=== PATIENT | female | born 1985 | race American Indian/Alaskan Native ===

== ENCOUNTER 2018-11-16 13:39 | Inpatient (IN) | payer OTHER ==
[2018-11-16 14:42] LABS: Bacteria,Urine 1+ /HPF (Negative); Bilirubin,Urine NEG (Negative); Blood,Urine MOD (Negative); Color,Urine Yellow (Yellow); Mucus,Urine 2+ /HPF; Urobilinogen,Urine < 2.0 mg/dL (<2.0)
[2018-11-16] MEDS ORDERED: LACTATED RINGERS 500 ML IV ONE (14:45)
--- NOTE | 2018-11-16 17:22 | Ultrasound Report ---
Limited OB ultrasound INDICATION: well being FINDINGS: Limited study is performed There is a single uterine with cephalic presentation. heart rate is 138 bpm. Amniotic fluid index is 9.8 cm which is within the normal range.. Signer Name: Chandan Cast MD Signed: 11/16/2018 5:18 PM Workstation Name: [id number]
[2018-11-16] MEDS ORDERED: XYLOCAINE 2% INFILTRATI ONE (18:42)
[2018-11-16] MEDS ORDERED: BRETHINE IVP PRN (18:42)
[2018-11-16] MEDS ORDERED: SUBLIMAZE IV PRN (18:42)
[2018-11-16] MEDS ORDERED: MINERAL OIL PO PRN (18:42)
[2018-11-16] MEDS ORDERED: STADOL IV PRN (18:42)
[2018-11-16] MEDS ORDERED: BRETHINE SUB-Q PRN (18:42)
[2018-11-16] MEDS ORDERED: ZOFRAN IV PRN (18:42)
[2018-11-16] MEDS ORDERED: PITOCin/NS 20 UNIT/1000ML DRIP 20 UNITS/1,000 ML BAG IV SCH (19:00)
--- NOTE | 2018-11-16 19:01 | History and Physical Report ---
History of Present Illness Date of examination: 11/16/18 Date of admission: 11/16/18 Chief complaint: SROM, contractions History of present illness: Menstrual History Regularity: regular Menses every: 26 days Duration: 4 LMP: 01/17/2018 LMP reliability: unknown LMP character: normal test type: urine test Date: 02/18/2018 BC at conception: none Planned ? yes EDC Calculations LMP: 10/24/2018 EDC Confirmation: 11/20/2018 Gestational Age: 14 3/7 weeks Past History : 4 Term Births: 1 Premature Births: 0 Living Children: 1 Para: 1 Mult. Births: 0 Prev : 0 Prev. attempt? none Aborta: 2 Elect. Ab: 0 Spont. Ab: 2 Ectopics: 0 # 1 Delivery date: 03/20/2004 Weeks Gestation: term labor: no Delivery type: Anesthesia type: epidural Infant Sex: Female weight: 6#14 # 2 Delivery date: 2015 Weeks Gestation: 6 Comments: MAB # 3 Delivery date: 2016 Weeks Gestation: 6 Comments: MAB Past Medical History: Negative Past Medical History Past Surgical History: Negative Past Surgical History Past Medical History Surgery (Non-food and beverage checker): Negative Past Surgical History Abnormal PAP: negative YUNG Exposure: negative Infertility: negative Uterine Anomaly: negative Uterine Surgery (not C/S): negative Other Gynecologic Problems: negative Family Hx: mom-htn mgm-htn Social Hx: prev smoker quit apr 2018 Infection History Hx of STD: none HIV Risk Eval: low risk Hepatitis B Risk Eval: low risk Personal hx. of genital herpes: no Partner hx. of genital herpes: no Rash, Viral, or Febrile illness since last LMP? no Varicella/Chicken Pox Status: Previous Disease TB Risk: no Genetic History Congenital Heart Defect: Mom: no Dad: no Kenneth Disease: Mom: no Dad: no Thalassemia Mom: no Dad: no Neural Tube Defect Mom: no Dad: no Down's Syndrome Mom: no Dad: no Miguel-Sachs Mom: no Dad: no Sickle Cell Disease/Trait Mom: no Dad: no Hemophilia Mom: no Dad: no Muscular Dystrophy Mom: no Dad: no Cystic Fibrosis Mom: no Dad: no [place] Chorea Mom: no Dad: no Mental Retardation Mom: no Dad: no Fragile X Mom: no Dad: no Other Genetic/Chromosomal Disorder Mom: no Dad: no Child w/other defect Mom: no Dad: no Enviromental Exposures Enviromental Exposures Reviewed Xray Exposure: no Medication, drug, or alcohol use since LMP: no Chemical/Other Exposure: no Exposure to Cat Liter: no Hx of Parvovirus (Fifth Disease): no Occupational Exposure to Children: none Active Medications (reviewed today): None Current Allergies (reviewed today): * SULFA (Critical) Past History Past Medical History: other (see HPI) Past Surgical History: other (see HPI) 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) Family/Genetic History: other (see HPI) Social history: other (see HPI) - Obstetrical History : 3 Para: 1 Medications and Allergies Allergies Allergy/AdvReac Type Severity Reaction Status Date / Time Sulfa (Sulfonamide Allergy Itching Verified 11/20/15 17:36 Antibiotics) Home Medications Medication Instructions Recorded Confirmed Last Taken Type Clindamycin [Clindamycin CAP] 450 mg PO QID #60 capsule 11/21/15 Unknown Rx Doxycycline Hyclate [Doxycycline 100 mg PO Q12HR #14 tab 11/21/15 Unknown Rx Hyclate TAB] HYDROcodone/APAP 7.5-325 [[place] 1 each PO Q6HR PRN #15 tablet 11/21/15 Unknown Rx 7.5/325] Review of Systems All systems: negative Genitourinary: leakage of fluid ("a couple times" Not continued), contractions (occasional, tolerable) - Vital Signs Vital signs: Vital Signs Temp Pulse Resp BP 98.5 F 100 H 20 113/72 11/16/18 14:01 11/16/18 14:01 11/16/18 14:01 11/16/18 14:01 Temp Pulse Resp BP Pulse Ox 98.5 F 100 H 20 113/72 11/16/18 14:01 11/16/18 14:02 11/16/18 14:01 11/16/18 14:02 - Physical Exam Cardiovascular: Regular rate, Normal S1, Normal S2 Lungs: Positive: Clear to auscultation, Normal air movement Abdomen: Positive: normal appearance, soft, normal bowel sounds. Negative: distention, tenderness Genitourinary (Female): Positive: normal external genitalia, normal perenium Vulva: both: normal Vagina: Positive: normal moisture. Negative: discharge Cervix: Negative: lesion, discharge Uterus: Positive: normal size, normal contour Adnexa: both: normal Anus/Rectum: Positive: normal perianal skin. Negative: rectal mass, hemorrhoids Extremities: Deep Tendon Reflex Grade: Normal +2 - Obstetrical FHR: auscultation normal Uterine Contraction Monitor Mode: External Cervical Dilatation: 4 Cervical Effacement Percentage: 70 station: -2 Uterine Tone Measurement Phase: Contraction Uterine Contraction Intensity: Moderate Results Result Diagrams: 11/17/18 Unknown Abnormal lab results 11/16/18 Range/Units 14:28 Urine WBC (Auto) 8.0 H (0.0-6.0) /HPF U Epithel Cells (Auto) 24.0 H (0-13.0) /HPF All other labs normal. Assessment and Plan term iup presents to triage with c/o LOF, KITTY 9cm, no s/s ROM. SVE on arrival per anodiser 1.5/30/-3, changes to 3/30/-3. Upon my assessment, SVE 4/70/-2, IBOW, vtx. Cat 1 tracing, vssaf. Admission orders placed in EMR. GBS negative. Pt plans for epidural for pain management .Dr. Pina aware of admission. Anticipate .
--- NOTE | 2018-11-16 22:39 | Event Note ---
Date: 11/16/18 SVE 4.5/70/-2, no significant change since admission. Contractions remain regular, palpating moderate, q2-5 minuted. DWP options for proceeding- SROM, pitocin, expt mgmt, pt elects exlt mgmt until FOC arrives to hospital from work. [facility] cat 1, VSSAF. Will continue to monitor at this time.
--- NOTE | 2018-11-17 00:41 | Event Note ---
Date: 11/17/18 Called to room by patient who requests AROM, DWP risks vs benefits pt agrees to proceed. SVE is 5/80/-2, vertex, tight BBOW- SROM upon digital examination, clear fluid noted. Patient voices desire for epidural at this time. Will plan to start pitocin after epidural placement if no cervical change noted. FHTs remain category 1. vssaf.
[2018-11-17] MEDS: LACTATED RINGERS 1,000 ML IV SCH ×2 (00:46→02:14)
[2018-11-17 01:34] LABS: Hematocrit TNR % (30.3-42.9); Hemoglobin TNR gm/dl (10.1-14.3); Mean Corpuscular HGB Conc TNR % (30-34); Mean Corpuscular Volume TNR fl (79-97); Platelet Count TNR K/mm3 (140-440); Red Blood Count TNR M/mm3 (3.65-5.03); Red Cell Distribution Width TNR % (13.2-15.2)
[2018-11-17 01:35] LABS: Mean Platelet Volume TNR fl (6-12)
[2018-11-17] MEDS ORDERED: NARCAN 2 MG/2 ML IV PRN (02:05)
--- NOTE | 2018-11-17 02:05 | Anesthesia Consultation ---
Anesthesia Consult and Med Hx Date of service: 11/17/18 - Airway Anesthetic Teeth Evaluation: Good ROM Head & Neck: Adequate Mental/Hyoid Distance: Adequate Mallampati Class: Class II Intubation Access Assessment: Probably Good - Pre-Operative Health Status ASA Pre-Surgery Classification: ASA2 Proposed Anesthetic Plan: Epidural, Spinal - Pulmonary Hx Asthma: No COPD: No Hx Pneumonia: No - Cardiovascular System Hx Hypertension: No - Central Nervous System Hx Seizures: No Hx Psychiatric Problems: No - Endocrine Hx Renal Disease: No Hx End Stage Renal Disease: No Hx Hypothyroidism: No Hx Hyperthyroidism: No - Hematic Hx Anemia: No Hx Sickle Cell Disease: No - Other Systems Hx Alcohol Use: No
[2018-11-17] MEDS ORDERED: PITOCin/NS 30 UNIT/500ML 30,000 MILLIUNITS/500 ML BAG IV ONE (02:47)
[2018-11-17] MEDS ORDERED: fentaNYL-BUPIV 2 MCG/ML-0.125% 200 MCG/100 ML BAG EPIDURAL SCH (03:00)
[2018-11-17] MEDS ORDERED: PITOCin/NS 30 UNIT/500ML 30 UNITS/500 ML BAG IV SCH (04:00)
--- NOTE | 2018-11-17 07:46 | Procedure Note ---
OB Delivery Note - Delivery Date of Delivery: 11/17/18 ( female) Four Slide Machine Setter: LENCHO ORDOÑEZ Estimated blood loss: 300cc - Vaginal Delivery presentation: vertex Delivery position: OP (direct OP, restituted ROT) Intrapartum events: none Delivery induction: none Delivery augmentation: rupture of membranes, pitocin Delivery monitor: external FHT, external uterine Route of delivery: Delivery placenta: spontaneous Delivery cord: 3 umbilical vessels Episiotomy: none Delivery laceration: none Anesthesia: epidural Delivery comments: female infant over intact perineum, infant del direct OP and restituted ROT. placed on mother's abd for skin to skin. 3 vessel cord clamped and cut. Placenta del intact and complete, no lacerations to repair. Pit to IVF. mother and remain LDR stable. - A at 1 minute: 8 at 5 minutes: 9 Gender: Female (6#2)
[2018-11-17] MEDS ORDERED: PITOCin/NS 20 UNIT/1000ML DRIP 20 UNITS/1,000 ML BAG IV SCH (10:46)
[2018-11-17] MEDS ORDERED: MILK OF MAGNESIA PO PRN (10:46)
[2018-11-17] MEDS ORDERED: BENADRYL PO PRN (10:46)
[2018-11-17] MEDS ORDERED: DULCOLAX PR PRN (10:46)
[2018-11-17] MEDS ORDERED: SODIUM CHLORIDE FLUSH SYRINGE 10 ML IV SCH (10:46)
[2018-11-17] MEDS ORDERED: DERMOPLAST TP PRN (10:46)
[2018-11-17] MEDS ORDERED: TUCKS PAD TP PRN (10:46)
[2018-11-17] MEDS ORDERED: PHENERGAN PO PRN (10:46)
[2018-11-17] MEDS ORDERED: LANSINOH TP PRN (10:46)
[2018-11-17] MEDS ORDERED: TYLENOL PO PRN (10:46)
[2018-11-17] MEDS ORDERED: PRENATAL VITAMIN PO SCH (11:46)
[2018-11-17] MEDS: IBUPROFEN PO SCH (17:54)
[2018-11-17 20:28] LABS: Hematocrit 33.1 % (30.3-42.9); Hemoglobin 11.6 gm/dl (10.1-14.3)
[2018-11-18] MEDS: IBUPROFEN PO SCH ×2 (00:39→06:10)
[2018-11-18] MEDS ORDERED: M-M-R II VACCINE SUB-Q ONE (07:47)
--- NOTE | 2018-11-18 08:46 | Discharge Summary ---
Providers - Providers Date of Admission: 11/16/18 19:45 Date of discharge: 11/18/18 (patient desires discharge today) Attending physician: HORACIO BURGER Primary care physician: HORACIO BURGER Hospitalization Reason for admission: labor Condition: Good Pertinent studies: post delivery h&H 11.6/33.1 Procedures: Hospital course: uncomplicated and course Disposition: DC-01 TO HOME OR SELFCARE Core Measure Documentation - Palliative Care Palliative Care/ Comfort Measures: Not Applicable - Core Measures Any of the following diagnoses?: none Exam - Constitutional Vitals: Temp Pulse Resp BP Pulse Ox 97.9 F 83 16 90/58 100 11/18/18 01:51 11/18/18 01:51 11/18/18 06:10 11/18/18 01:51 11/18/18 01:51 General appearance: Present: no acute distress, well-nourished - EENT Eyes: Present: PERRL ENT: hearing intact, clear oral mucosa - Neck Neck: Present: supple, normal ROM - Respiratory Respiratory effort: normal Respiratory: bilateral: CTA - Cardiovascular Heart Sounds: Present: S1 & S2. Absent: rub, click - Extremities Extremities: pulses symmetrical, No edema Peripheral Pulses: within normal limits - Abdominal General gastrointestinal: Present: soft, non-tender, non-distended, normal bowel sounds Female genitourinary: Present: normal - Integumentary Integumentary: Present: clear, warm, dry - Musculoskeletal Musculoskeletal: gait normal, strength equal bilaterally - Psychiatric Psychiatric: appropriate mood/affect, intact judgment & insight - Neurologic Neurologic: CNII-XII intact, moves all extremities - Additional findings Additional findings: Fundus firm, ML, U/2. Vaginal bleeding is scant, patient denies any large clots or heavy bleeding. Patient reports pain is well controlled with ibuprofen. She denies any complaints or concerns at this time. Pt reports is doing well, she is bottle feeding only, denies any breast complaints. Reviewed post delivery H&H with pt, she denies any dizziness or feeling faint with ambulation or position changes. VSSAF. Pt desires discharge today, will f/u in office for PP appt in 4 weeks. Plan Activity: no restrictions Diet: regular Follow up with: HORACIO BURGER MD [Primary Care Provider] - 12/16/18 (Congratulations! P lópez call [phone] to schedule your post appointment in 4 weeks. Please call with any questions or concerns. )
[2018-11-18 13:25] VITALS: BP 115/71
== END 2018-11-18 15:00 | disposition home or self-care (01) | DRG 775 ==
LOC: TRG 13:39 → LD 19:45 → OB 11-17 10:45
PROVIDERS: ADMIT Obstetrics & Gynecology; ATTEND Obstetrics & Gynecology
PROC: 10E0XZZ Delivery of Products of Conception, External Approach (ICD-10-PCS; principal; 2018-11-17)
PROC: 3E0R3BZ Introduction of Anesthetic Agent into Spinal Canal, Percutaneous Approach (ICD-10-PCS; 2018-11-17)
PROC: 00HU33Z Insertion of Infusion Device into Spinal Canal, Percutaneous Approach (ICD-10-PCS; 2018-11-17)
DX: O64.0XX0 Obstructed labor due to incomplete rotation of fetal head, not applicable or unspecified (principal); Z37.0 Single live birth; Z88.2 Allergy status to sulfonamides; Z3A.39 39 weeks gestation of pregnancy
CPT/HCPCS: 36415; 76815; 81001; 85014; 85018; 85027; 85049; 86592; 86850; 86900; 86901; G0378; J2590; J7120

== ENCOUNTER 2021-01-06 05:54 | Inpatient (IN) | payer OTHER ==
[2021-01-06] MEDS ORDERED: CARBOPROST TROMETHAMINE 250 MCG/1 ML INJ IM PRN (07:54)
[2021-01-06] MEDS ORDERED: ePHEDrine SULFATE 50 MG/1 ML INJ IV PRN ×2 (07:54→16:50)
[2021-01-06] MEDS ORDERED: TERBUTALINE 1 MG/1 ML INJ SUB-Q PRN (07:54)
[2021-01-06] MEDS ORDERED: LOPERAMIDE 2 MG CAP PO PRN (07:54)
[2021-01-06] MEDS ORDERED: METHYLERGONOVINE MALEATE 0.2 MG/ML VIAL IM PRN (07:54)
[2021-01-06] MEDS ORDERED: LIDOCAINE (2%) 20 MG/1 ML VIAL 20 ML MDV INFILTRATI ONE (07:54)
[2021-01-06] MEDS ORDERED: ACETAMINOPHEN 325 MG TAB PO PRN ×2 (07:54→23:52)
[2021-01-06] MEDS ORDERED: MINERAL OIL 30 ML ORAL LIQD PO PRN (07:54)
[2021-01-06] MEDS ORDERED: miSOPROStol 200 MCG TAB PR PRN (07:54)
[2021-01-06] MEDS ORDERED: BUTORPHANOL 2 MG/1 ML INJ IV PRN (07:54)
[2021-01-06] MEDS ORDERED: ONDANSETRON 4 MG/2 ML INJ IV PRN ×3 (07:54→23:52)
[2021-01-06] MEDS ORDERED: OXYTOCIN 10 UNIT/1 ML INJ IM PRN (07:54)
[2021-01-06] MEDS ORDERED: OXYTOCIN DRIP 30 UNITS/500 ML BAG IV SCH ×2 (08:00)
--- NOTE | 2021-01-06 08:08 | History and Physical Report ---
History of Present Illness Date of examination: 01/06/21 Date of admission: 01/06/2021 Chief complaint: "water is broken but I don't feel any contractions" History of present illness: EDC Confirmation: 01/08/2021 Gestational Age: 39 5/7 weeks Past History : 5 Term Births: 2 Premature Births: 0 Living Children: 2 Para: 2 Mult. Births: 0 Prev : 0 Prev. attempt? none Aborta: 2 Elect. Ab: 0 Spont. Ab: 2 Ectopics: 0 # 1 Delivery date: 03/20/2004 Weeks Gestation: term labor: no Delivery type: Hours of labor: ? Anesthesia type: epidural Delivery location: [facility] Infant Sex: Female weight: 6#14 Comments: No complications # 2 Delivery date: 2014 Weeks Gestation: 6 Delivery type: SAB Comments: MAB, No complications, no meds or D&C # 3 Delivery date: 2015 Weeks Gestation: 6 Delivery type: SAB Comments: MAB, no complications, no meds or D&C # 4 Delivery date: 11/17/2018 Weeks Gestation: 39 labor: no Delivery type: Vaginal Hours of labor: 10 hours Anesthesia type: epidural Delivery location: [facility] Infant Sex: female weight: 6.13 Comments: No complications Risk Factors: Smoked Tobacco Use: Current every day smoker Cigarettes: Yes -- 1pk a week pack(s) per day, Year started: 2003 Years smoked: 17 years Smokeless Tobacco Use: Never Counseled to quit/cut down: yes Tobacco Use Comments: Pt will try and quit without medication. 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 % Sun Exposure: rarely Dietary Counseling: pn yes Past Medical History: Reviewed history from 05/25/2018 and no changes required: Negative Past Medical History Past Surgical History: Reviewed history from 05/25/2018 and no changes required: negative Past Medical History Anesthesia Complications: negative Anemia: negative Autoimmune Disorder: negative Bleeding Disorder: negative Blood Transfusions: negative Breast Disease: negative Diabetes: negative Heart Disease: negative Hypertension: negative Hepatitis/Liver Disease: negative Kidney Disease/UTI: negative Neurologic/Epilepsy/Migraines: negative Phlebitis/Varicosities: negative Psychiatric: negative Pulmonary Disease/Asthma: negative Thyroid Disease: negative Hospitalizations: negative Surgery (Non-manager retention): negative Abnormal PAP: negative YUNG Exposure: negative Infertility: negative Uterine Anomaly: negative Uterine Surgery (not C/S): negative Other Gynecologic Problems: negative Social Hx: prev smoker quit apr 2018 Infection History Hx of STD: none HIV Risk Eval: no Hepatitis B Risk Eval: low risk Personal hx. of genital herpes: no Partner hx. of genital herpes: no Rash, Viral, or Febrile illness since last LMP? no Varicella/Chicken Pox Status: Previous Disease TB Risk: no Genetic History Congenital Heart Defect: Mom: no Dad: no Kenneth Disease: Mom: no Dad: no Thalassemia Mom: no Dad: no Neural Tube Defect Mom: no Dad: no Down's Syndrome Mom: no Dad: no Miguel-Sachs Mom: no Dad: no Sickle Cell Disease/Trait Mom: no Dad: no Hemophilia Mom: no Dad: no Muscular Dystrophy Mom: no Dad: no Cystic Fibrosis Mom: no Dad: no [place] Chorea Mom: no Dad: no Mental Retardation Mom: no Dad: no Fragile X Mom: no Dad: no Other Genetic/Chromosomal Disorder Mom: no Dad: no Child w/other defect Mom: no Dad: no Enviromental Exposures Xray Exposure: no Medication, drug, or alcohol use since LMP: no Chemical/Other Exposure: no Exposure to Cat Liter: no Hx of Parvovirus (Fifth Disease): no Occupational Exposure to Children: none Active Medications: None Current Allergies: * SULFA (Critical) Past History Past Medical History: other (see HPI) Past Surgical History: other (see HPI) 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) Family/Genetic History: other (see HPI) Social history: smoking (former), other (see HPI) - Obstetrical History Expected Date of Delivery: 01/08/21 Actual Gestation: 39 Week(s) 5 Day(s) : 5 Para: 2 Hx # Term Pregnancies: 2 Number of Pregnancies: 0 Spontaneous Abortions: 2 Induced : 0 Number of Living Children: 2 Medications and Allergies Allergies Allergy/AdvReac Type Severity Reaction Status Date / Time Sulfa (Sulfonamide Allergy Itching Verified 11/20/15 17:36 Antibiotics) Home Medications Medication Instructions Recorded Confirmed Last Taken Type Clindamycin [Clindamycin CAP] 450 mg PO QID #60 capsule 11/21/15 11/17/18 Unknown Rx Doxycycline Hyclate [Doxycycline 100 mg PO Q12HR #14 tab 11/21/15 11/17/18 Unknown Rx Hyclate TAB] HYDROcodone/APAP 7.5-325 [[place] 1 each PO Q6HR PRN #15 tablet 11/21/15 11/17/18 Unknown Rx 7.5/325] Review of Systems All systems: negative Genitourinary: leakage of fluid, no vaginal bleeding, no contractions - Vital Signs Vital signs: Vital Signs Pulse BP 81 118/69 01/06/21 06:10 01/06/21 06:10 Temp Pulse Resp BP Pulse Ox 98.7 F 79 18 118/69 98 01/06/21 06:11 01/06/21 07:32 01/06/21 06:11 01/06/21 06:11 01/06/21 07:32 - Physical Exam Breasts: Positive: deferred Cardiovascular: Regular rate Lungs: Positive: Normal air movement Abdomen: Positive: normal appearance, soft Genitourinary (Female): Positive: normal external genitalia, normal perenium Vulva: both: normal Vagina: Positive: normal moisture (clear) Uterus: Positive: normal size, normal contour. Negative: tender Anus/Rectum: Positive: normal perianal skin Extremities: Positive: normal - Obstetrical FHR: auscultation normal, category 1 Uterine Contraction Monitor Mode: External Cervical Dilatation: 4 Cervical Effacement Percentage: 80 station: -2 Uterine Contraction Pattern: Regular Uterine Tone Measurement Phase: Resting Results Result Diagrams: 01/06/21 08:00 Abnormal lab results 01/06/21 Range/Units 06:30 Membranes Rupture Positive A (Negative) All other labs normal. Tests: (1) Ct, Ng, Trich vag by MICHELA ([id number]) Order Note: Clinical Information: SRC:VR SRC:UR ! Chlamydia by MICHELA Negative Negative *1 ! Gonococcus by MICHELA Negative Negative *2 ! Trich vag by MICHELA Negative Negative *3 Tests: (2) Strep Gp B MICHELA ([id number]) ! Strep Gp B MICHELA Negative Negative *4 Tests: (1) Profile I ([id number]) Order Note: Clinical Information: SRC:UR HBsAg Screen Negative Negative *1 RPR Non Reactive Non Reactive *2 Rubella Antibodies, IgG 12.40 index Immune >0.99 *3 Non-immune <0.90 Equivocal 0.90 - 0.99 Immune >0.99 ABO Grouping O *4 Rh Factor Positive *5 Please note: Prior records for this patient's ABO / Rh type are not available for additional verification. Antibody Screen Negative Negative *6 WBC 5.7 x10E3/uL 3.4-10.8 *7 RBC [L] 3.29 x10E6/uL 3.77-5.28 *8 Hemoglobin [L] 10.7 g/dL 11.1-15.9 *9 Hematocrit [L] 32.7 % 34.0-46.6 *10 MCV [H] 99 fL 79-97 *11 MCH 32.5 pg 26.6-33.0 *12 MCHC 32.7 g/dL 31.5-35.7 *13 RDW 13.4 % 12.3-15.4 *14 Platelets 265 x10E3/uL 150-379 *15 Neutrophils 72 % Not Estab. *16 Lymphs 22 % Not Estab. *17 Monocytes 5 % Not Estab. *18 Eos 1 % Not Estab. *19 Basos 0 % Not Estab. *20 ! Immature Cells <No Reported Value> *21 Neutrophils (Absolute) 4.1 x10E3/uL 1.4-7.0 *22 Lymphs (Absolute) 1.2 x10E3/uL 0.7-3.1 *23 Monocytes(Absolute) 0.3 x10E3/uL 0.1-0.9 *24 Eos (Absolute) 0.1 x10E3/uL 0.0-0.4 *25 Baso (Absolute) 0.0 x10E3/uL 0.0-0.2 *26 ! Immature Granulocytes 0 % Not Estab. *27 ! Immature Grans (Abs) 0.0 x10E3/uL 0.0-0.1 *28 ! NRBC <No Reported Value> *29 Hematology Comments: <No Reported Value> *30 Tests: (2) AFP Tetra ([id number]) ! Results Report *31 ! Test Results: *Screen Negative* *32 ! Gest. Age on Collection Date 18.4 WEEKS *33 ! Gestat. Age Based On AISLINN *34 11/20/2018 ! Maternal [age]ISLINN 33.6 yr *35 ! Race Black *36 ! Weight 144 lbs *37 ! Insulin Dep Diabetes No *38 ! Multiple Gestation No *39 ! AFP Value 41.1 ng/mL *40 ! AFP MoM 0.81 *41 ! hCG Value 58270 mIU/mL *42 ! hCG MoM 0.81 *43 ! uE3 Value 1.88 ng/mL *44 ! uE3 MoM 1.30 *45 ! TAMEKA Value 121.82 pg/mL *46 ! TAMEKA MoM 0.69 *47 ! [place]BR [place] 1 [place] [address] *48 ! DSR (Second Trimester) 1 IN 8490 *49 ! DSR (By Age) 1 IN 477 *50 ! T18 Risk Not increased *51 ! T18 (By Age) 1:1856 *52 ! Interpretation NL42 *53 Interpretation: Screen Negative This result is screen negative for OSB, Down Syndrome and Trisomy 18. The AFP MoM and patient specific risks calculated are based on the gestational age and the clinical information provided. This test can identify up to 80% of open neural tube defects. Closed neural tube defects and some open defects may not be detected by this test. The combination of maternal age, AFP, hCG, uE3, and TAMEKA identifies 75-80% of Down Syndrome. The combination of maternal age, AFP, hCG and uE3 identifies 60% of Trisomy 18 pregnancies. The [place] [employer] recommends amniocentesis be offered to women age 35 and older. Recalculations are not recommended when gestational dating by LMP and ultrasound are within 10 days. ! Comments: [facility] *54 Angela Sheridan, Ph.D., [facility] Principal Genetics Laborer [employer] References: Available Upon Request. Multiples Of Median Cutoffs Abbreviation Definitions For AFP Elevations IDD- Insulin Dep Diabetes [place] 2.5 Black 2.8 OSBR- Open Spina Bifida IDD 2.0 Twins 4.5 Risk DSR Cutoff 1:270 DSR- Down Syndrome Risk T18 Cutoff 1:100 T18- Trisomy 18 Down Syndrome and Trisomy 18 screening are considered Investigational For further inquiries contact [employer] at [phone]. Tests: (3) Panel [id number] ([id number]) HIV Screen 4th Generation wRfx Non Reactive Non Reactive *55 Tests: (4) HCV Ab w/Rflx to Verification ([id number]) ! HCV Ab 0.1 s/co ratio 0.0-0.9 *56 Tests: (5) Comment: ([id number]) ! Comment: SPRCS *57 Non reactive HCV antibody screen is consistent with no HCV infection, unless recent infection is suspected or other evidence exists to indicate HCV infection. Tests: (6) Urine Culture, Routine ([id number]) Urine Culture, Routine [A] Final report *58 Tests: (7) Result ([id number]) ! Result 1 [A] "Result Below..." *59 RESULT: Enterococcus faecalis 25,000-50,000 colony forming units per mL Note: this isolate is vancomycin-susceptible. This information is provided for epidemiologic purposes only: vancomycin is not among the antibiotics recommended for therapy of urinary tract infections caused by Enterococcus. ! Antimicrobial Susceptibility MIHEAD *60 S = Susceptible; I = Intermediate; R = Resistant P = Positive; N = Negative MICS are expressed in micrograms per mL Antibiotic RSLT#1 RSLT#2 RSLT#3 RSLT#4 Ciprofloxacin S Levofloxacin S Nitrofurantoin S Penicillin S Tetracycline S Vancomycin S Performed At: , [facility] [address] [place] [address] [id number] Ezequiel Lowery MD Phone: [phone] Performed At: , [facility] [address], [place] [id number] Nya Lopez MD Phone: [phone] Assessment and Plan FHT's cat 1 with regular contractions noted. ROM plus +; GBS negative. No complaints verbalized at this time. SVE 4/80/-2 SROM clear fluid VTX presentation. POC discussed with pt and SO. All questions and concerns addressed. Admit to labor and monitor per protocol, augment labor with Pitocin; Orders in EMR. Anticipate - Patient Problems (1) 39 weeks gestation of Current Visit: Yes Status: Acute (2) Rupture of membranes with clear amniotic fluid Current Visit: Yes Status: Acute (3) echogenic intracardiac focus on ultrasound Current Visit: Yes Status: Acute Plan to address problem: FELECIA team notification and attendance requested for delivery
[2021-01-06 08:46] LABS: Hematocrit 34.6 % (30.3-42.9); Hemoglobin 12.4 gm/dl (10.1-14.3); Mean Corpuscular HGB Conc 36 % (30-34); Mean Corpuscular Volume 100 fl (79-97); Platelet Count 249 K/mm3 (140-440); Red Blood Count 3.46 M/mm3 (3.65-5.03); Red Cell Distribution Width 12.5 % (13.2-15.2)
[2021-01-06] MEDS: LACTATED RINGERS 1,000 ML IV SCH ×2 (09:14→16:20)
--- NOTE | 2021-01-06 14:28 | Event Note ---
Date: 01/06/21 Pt sitting in bed with FOB present at bedside. Pt without complaints and verbalizes "contractions have really just started". Pitocin IV @5mL/hr currently infusing. SVE /-2 clear fluid noted; Slow progression discussed with pt and RN at bedside. Risks and benefits of internal monitoring reviewed and pt verbalizes understanding. Pt declines internal monitoring for accurate measurement at this time. Continue augmentation and monitoring per protocol. Anticipate .
[2021-01-06] MEDS ORDERED: NALOXONE 2 MG/2 ML INJ IV PRN (16:50)
[2021-01-06] MEDS ORDERED: NalbUPHINE 10 MG/1 ML INJ IV PRN (16:50)
[2021-01-06] MEDS ORDERED: diphenhydrAMINE 50 MG/ML VIAL IV PRN (16:50)
[2021-01-06] MEDS ORDERED: fentaNYL-BUPIV 2 MCG/ML-0.125% 200 MCG/100 ML BAG EPIDURAL SCH (17:00)
[2021-01-06] MEDS ORDERED: LACTATED RINGERS 250 ML IV SOLN IV ONE (17:00)
--- NOTE | 2021-01-06 17:14 | Anesthesia Consultation ---
Anesthesia Consult and Med Hx Date of service: 01/06/21 - Airway Anesthetic Teeth Evaluation: Good ROM Head & Neck: Adequate Mental/Hyoid Distance: Adequate Mallampati Class: Class II Intubation Access Assessment: Probably Good - Pulmonary Exam CTA: Yes - Cardiac Exam Cardiac Exam: RRR - Pre-Operative Health Status ASA Pre-Surgery Classification: ASA2 Proposed Anesthetic Plan: Epidural - Pulmonary Hx Smoking: No Hx Asthma: No COPD: No Hx Pneumonia: No Hx Sleep Apnea: No - Cardiovascular System Hx Hypertension: No Hx Heart Attack/AMI: No Hx Angina: No - Central Nervous System Hx Seizures: No Hx Psychiatric Problems: No - Gastrointestinal Hx Gastroesophageal Reflux Disease: No - Endocrine Hx Renal Disease: No Hx End Stage Renal Disease: No Hx Liver Disease: No Hx Insulin Dependent Diabetes: No Hx Non-Insulin Dependent Diabetes: No Hx Hypothyroidism: No Hx Hyperthyroidism: No - Hematic Hx Anemia: No Hx Sickle Cell Disease: No - Other Systems Hx Alcohol Use: Yes
--- NOTE | 2021-01-06 17:16 | Progress Note ---
Labor Epidural - Labor Epidural Start Time: 17:00 Stop Time: 17:11 Performed by:: HILARY MCCLURE (Tang PRYOR) Procedure: Patient is requesting epidural for labor and pain. H&P, labs were reviewed. Patient IDed, H&P reviewed, all questions and concerns were answered, and consent was signed. Timeout was performed at bedside. Patient in sitting position. Sterile prep and drape was performed. 3ml of 1% lidocaine skin wheal at L[3]- L [4]. 18-gauge [employer] epidural needle was advanced to loss of resistance with air technique 7cm. Negative CSF negative blood. Epidural catheter advanced to [11] centimeters. [negative] Aspiration [negative] test dose. Sterile dressing applied. Patient tolerated procedure.
--- NOTE | 2021-01-06 19:47 | Event Note ---
Date: 01/06/21 Pt without complaints s/p epidural. Cat1 FHT's and regular contractions noted via strip at this time. SVE ant. lip/100%/+1 station. Pt denies feeling any rectal pressure. RN made aware. Anticipate .
--- NOTE | 2021-01-06 21:26 | Procedure Note ---
OB Delivery Note - Delivery Date of Delivery: 01/06/21 Community Director: MICHAEL PRADO Estimated blood loss: 100cc - Vaginal Delivery presentation: vertex Delivery position: OA Intrapartum events: none Delivery induction: none Delivery augmentation: pitocin Delivery monitor: external FHT, external uterine Route of delivery: Delivery placenta: spontaneous Delivery cord: 3 umbilical vessels Episiotomy: none Delivery laceration: 1st degree Delivery repair: other (hemostatic, repair not needed) Anesthesia: epidural Delivery comments: Viable male infant delivered over intact perineum and placed on mother's abdomen. Infant vigorous and crying spontaneously, [facility]LE[facility] team present for delivery; 3 vessel umbilical cord clamped after cessation of pulsation and cut by FOB. Cord blood collected. Placenta delivered spontaneously and intact. Pitocin infusing IV. 1st degree laceration hemostatic at this time and repair not needed. Fundus firm with small vaginal bleeding, pericare done; Apgars 8,9 Wt 7lbs 4oz. Mother and baby remain LDR stable. Counts correct x2. EBL 100mL - A at 1 minute: 8 at 5 minutes: 9 Gender: Male (7lbs 4oz)
[2021-01-06] MEDS ORDERED: diphenhydrAMINE 25 MG CAP PO PRN (23:52)
[2021-01-06] MEDS ORDERED: MAGNESIUM HYDROXIDE (MOM) ORAL LIQD UDC PO PRN (23:52)
[2021-01-06] MEDS ORDERED: BENZOCAINE/MENTHOL 20/0.5% TOP SPRAY 56 GM TP PRN (23:52)
[2021-01-06] MEDS ORDERED: PROMETHAZINE 25 MG TAB PO PRN (23:52)
[2021-01-06] MEDS ORDERED: WITCH HAZEL/ GLYCERIN PAD TP PRN (23:52)
[2021-01-06] MEDS ORDERED: miSOPROStol 100 MCG TAB PR PRN (23:52)
[2021-01-06] MEDS ORDERED: LANOLIN/ZINC/DIMETHICONE (LANSINOH) 7 GM TP PRN (23:52)
[2021-01-06] MEDS ORDERED: oxyCODONE /ACETAMINOPHEN 5-325MG TAB PO PRN (23:52)
[2021-01-07] MEDS: IBUPROFEN 600 MG TAB PO SCH ×4 (00:55→19:02)
[2021-01-07] MEDS: DOCUSATE SODIUM 100 MG CAP PO SCH ×3 (00:57→23:09)
[2021-01-07] MEDS: FERROUS SULFATE 325 MG TAB PO SCH ×3 (00:57→23:08)
--- NOTE | 2021-01-07 09:45 | Progress Note ---
Assessment and Plan Pt sitting in bed without complaints. Infant swaddled in bassinet at bedside. VSS and H&H stable post delivery. Pt reports ambulating, eating, and voiding well and without difficulty. Reports desires for Mirena placement PP for BC. All questions and concerns addressed. Precautions reviewed. Anticipate stable discharge home tomorrow. - Patient Problems (1) echogenic intracardiac focus on ultrasound Current Visit: Yes Status: Acute (2) (normal spontaneous vaginal delivery) Current Visit: No Status: Acute Plan to address problem: continue pathway Subjective - Subjective Date of service: 01/07/21 Principal diagnosis: PP Day#1; IUP @term delivered; Interval history: EDC Confirmation: 01/08/2021 Gestational Age: 39 5/7 weeks Past History : 5 Term Births: 2 Premature Births: 0 Living Children: 2 Para: 2 Mult. Births: 0 Prev : 0 Prev. attempt? none Aborta: 2 Elect. Ab: 0 Spont. Ab: 2 Ectopics: 0 # 1 Delivery date: 03/20/2004 Weeks Gestation: term labor: no Delivery type: Hours of labor: ? Anesthesia type: epidural Delivery location: [facility] Sex: Female weight: 6#14 Comments: No complications # 2 Delivery date: 2014 Weeks Gestation: 6 Delivery type: SAB Comments: MAB, No complications, no meds or D&C # 3 Delivery date: 2015 Weeks Gestation: 6 Delivery type: SAB Comments: MAB, no complications, no meds or D&C # 4 Delivery date: 11/17/2018 Weeks Gestation: 39 labor: no Delivery type: Vaginal Hours of labor: 10 hours Anesthesia type: epidural Delivery location: [facility] Sex: female weight: 6.13 Comments: No complications Risk Factors: Smoked Tobacco Use: Current every day smoker Cigarettes: Yes -- 1pk a week pack(s) per day, Year started: 2003 Years smoked: 17 years Smokeless Tobacco Use: Never Counseled to quit/cut down: yes Tobacco Use Comments: Pt will try and quit without medication. 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 % Sun Exposure: rarely Dietary Counseling: pn yes Past Medical History: Reviewed history from 05/25/2018 and no changes required: Negative Past Medical History Past Surgical History: Reviewed history from 05/25/2018 and no changes required: negative Past Medical History Anesthesia Complications: negative Anemia: negative Autoimmune Disorder: negative Bleeding Disorder: negative Blood Transfusions: negative Breast Disease: negative Diabetes: negative Heart Disease: negative Hypertension: negative Hepatitis/Liver Disease: negative Kidney Disease/UTI: negative Neurologic/Epilepsy/Migraines: negative Phlebitis/Varicosities: negative Psychiatric: negative Pulmonary Disease/Asthma: negative Thyroid Disease: negative Hospitalizations: negative Surgery (Non-director of career services): negative Abnormal PAP: negative YUNG Exposure: negative Infertility: negative Uterine Anomaly: negative Uterine Surgery (not C/S): negative Other Gynecologic Problems: negative Social Hx: prev smoker quit apr 2018 Infection History Hx of STD: none HIV Risk Eval: no Hepatitis B Risk Eval: low risk Personal hx. of genital herpes: no Partner hx. of genital herpes: no Rash, Viral, or Febrile illness since last LMP? no Varicella/Chicken Pox Status: Previous Disease TB Risk: no Genetic History Congenital Heart Defect: Mom: no Dad: no Kenneth Disease: Mom: no Dad: no Thalassemia Mom: no Dad: no Neural Tube Defect Mom: no Dad: no Down's Syndrome Mom: no Dad: no Miguel-Sachs Mom: no Dad: no Sickle Cell Disease/Trait Mom: no Dad: no Hemophilia Mom: no Dad: no Muscular Dystrophy Mom: no Dad: no Cystic Fibrosis Mom: no Dad: no Musa Chorea Mom: no Dad: no Mental Retardation Mom: no Dad: no Fragile X Mom: no Dad: no Other Genetic/Chromosomal Disorder Mom: no Dad: no Child w/other defect Mom: no Dad: no Enviromental Exposures Xray Exposure: no Medication, drug, or alcohol use since LMP: no Chemical/Other Exposure: no Exposure to Cat Liter: no Hx of Parvovirus (Fifth Disease): no Occupational Exposure to Children: none Active Medications: None Current Allergies: * SULFA (Critical) Patient reports: appetite normal, voiding normally, pain well controlled, ambulating normally, no dizzy ambulation, no appetite poor, no pain poorly controlled, no nauseated [place]: doing well Objective - Vital Signs Latest vital signs: Vital Signs Temp Pulse Resp BP Pulse Ox Pulse Ox 01/07/21 08:53 97.6 F 91 H 18 110/84 100 08/29/21 06:33 18 01/07/21 05:46 18 01/07/21 05:29 97.8 F 88 20 111/75 97 01/07/21 01:55 18 01/07/21 00:55 18 01/07/21 00:09 96 01/06/21 23:28 98.4 F 84 18 120/78 96 01/06/21 22:21 84 97 01/06/21 22:16 98 H 100 01/06/21 22:11 79 100 01/06/21 22:06 77 100 01/06/21 22:01 76 141/63 99 01/06/21 21:56 82 100 01/06/21 21:51 69 100 01/06/21 21:48 86 83 L 01/06/21 21:46 80 99 01/06/21 21:41 79 100 01/06/21 21:36 75 100 01/06/21 21:31 83 111/51 100 01/06/21 21:25 77 96 01/06/21 21:23 88 79 L 01/06/21 21:20 80 88 01/06/21 21:15 86 118/68 94 01/06/21 21:10 93 H 100 01/06/21 21:05 99 H 100 01/06/21 21:02 93 H 126/64 01/06/21 21:00 99.3 F 98 H 99 01/06/21 20:58 88 120/67 01/06/21 20:55 99 H 100 01/06/21 20:50 79 100 01/06/21 20:45 93 H 100 01/06/21 20:42 95 H 86 01/06/21 20:40 92 H 97 01/06/21 20:37 59 L 01/06/21 20:33 63 99 01/06/21 20:28 68 107/65 100 01/06/21 20:23 75 99 01/06/21 20:22 63 89 01/06/21 20:18 70 100 01/06/21 20:16 71 73 L 01/06/21 20:13 68 99 01/06/21 20:08 69 100 01/06/21 20:03 63 100 01/06/21 19:58 77 112/67 100 01/06/21 19:53 66 100 01/06/21 19:48 96 H 99 01/06/21 19:43 85 100 01/06/21 19:41 75 86 01/06/21 19:38 71 100 01/06/21 19:33 68 100 01/06/21 19:30 100 01/06/21 19:28 64 100 01/06/21 19:27 72 95/54 01/06/21 19:23 62 100 01/06/21 19:18 62 100 01/06/21 19:13 68 100 01/06/21 19:08 78 100 01/06/21 19:03 79 100 01/06/21 19:00 98.3 F 01/06/21 18:58 66 96/64 100 01/06/21 18:52 74 100 01/06/21 18:47 61 100 01/06/21 18:42 61 100 01/06/21 18:37 65 100 01/06/21 18:32 66 100 01/06/21 18:29 71 106/64 01/06/21 18:27 67 100 01/06/21 18:22 59 L 100 01/06/21 18:17 59 L 100 01/06/21 18:12 65 99 01/06/21 18:07 64 99 01/06/21 18:02 74 99 01/06/21 18:00 98.1 F 01/06/21 17:57 68 113/84 99 01/06/21 17:52 72 98 01/06/21 17:47 66 100 01/06/21 17:42 68 100 01/06/21 17:37 66 100 01/06/21 17:32 75 98 01/06/21 17:27 74 98 01/06/21 17:26 77 124/59 01/06/21 17:24 78 116/73 01/06/21 17:22 78 129/71 99 01/06/21 17:20 73 121/65 01/06/21 17:18 84 145/67 01/06/21 17:17 80 100 01/06/21 17:16 79 149/68 01/06/21 17:14 117 H 129/67 01/06/21 17:12 84 151/66 100 01/06/21 17:10 90 135/62 01/06/21 17:08 88 171/78 01/06/21 17:07 100 H 100 01/06/21 17:06 89 127/79 75 L 01/06/21 17:04 86 120/77 01/06/21 17:02 79 120/72 100 01/06/21 17:00 92 H 119/66 01/06/21 16:58 96 H 132/64 01/06/21 16:57 89 100 01/06/21 16:56 94 H 139/76 87 01/06/21 16:52 84 151/72 100 01/06/21 16:47 80 100 01/06/21 16:42 77 100 01/06/21 16:37 98 H 99 01/06/21 16:36 69 124/78 01/06/21 16:32 75 98 01/06/21 16:27 74 99 01/06/21 16:25 98.2 F 01/06/21 16:22 76 98 01/06/21 16:17 76 100 01/06/21 16:12 74 100 01/06/21 16:08 96 H 62 L 01/06/21 16:07 80 L 01/06/21 16:00 82 97 01/06/21 15:57 82 90 01/06/21 15:55 86 94 01/06/21 15:50 76 96 01/06/21 15:46 77 93 01/06/21 15:45 81 96 01/06/21 15:40 80 96 01/06/21 15:37 71 110/74 01/06/21 15:35 75 99 01/06/21 15:30 76 97 01/06/21 15:25 80 95 01/06/21 15:24 75 80 L 01/06/21 15:20 79 99 01/06/21 15:15 78 99 01/06/21 15:10 67 99 01/06/21 15:05 73 99 01/06/21 15:00 69 100 01/06/21 14:55 86 99 01/06/21 14:50 96 H 87 01/06/21 14:42 98 H 95 01/06/21 14:37 80 100 01/06/21 14:36 74 110/66 01/06/21 14:32 97 H 100 01/06/21 14:30 98.1 F 01/06/21 14:27 78 99 01/06/21 14:22 85 100 01/06/21 14:17 71 98 01/06/21 14:12 74 98 01/06/21 14:07 67 100 01/06/21 14:02 88 99 01/06/21 13:57 81 100 01/06/21 13:52 85 100 01/06/21 13:47 71 99 01/06/21 13:42 70 100 01/06/21 13:38 78 122/73 01/06/21 13:37 92 H 99 01/06/21 13:29 84 100 01/06/21 13:24 67 98 01/06/21 13:19 67 98 01/06/21 13:14 77 99 01/06/21 13:09 68 99 01/06/21 13:04 65 100 01/06/21 12:59 78 100 01/06/21 12:54 65 100 01/06/21 12:49 75 99 01/06/21 12:44 69 99 01/06/21 12:39 69 100 01/06/21 12:36 77 112/66 01/06/21 12:34 72 99 01/06/21 12:29 70 100 01/06/21 12:25 98.2 F 01/06/21 12:24 75 99 01/06/21 12:19 78 100 01/06/21 12:14 72 100 01/06/21 12:11 89 94 01/06/21 12:09 92 H 96 01/06/21 11:57 91 H 100 01/06/21 11:52 99 H 100 01/06/21 11:47 82 98 01/06/21 11:42 96 H 99 01/06/21 11:37 78 98 01/06/21 11:36 75 100/63 01/06/21 11:32 78 99 01/06/21 11:27 79 98 01/06/21 11:22 80 98 01/06/21 11:17 81 98 01/06/21 11:12 79 98 01/06/21 11:07 83 97 01/06/21 11:02 83 98 01/06/21 10:57 85 98 01/06/21 10:52 94 H 98 01/06/21 10:47 88 99 01/06/21 10:42 97 H 99 01/06/21 10:37 96 H 118/68 98 01/06/21 10:32 88 98 01/06/21 10:27 98 H 98 01/06/21 10:23 97.3 F L 01/06/21 10:22 88 99 01/06/21 10:12 108 H 97 01/06/21 10:07 94 H 98 01/06/21 10:02 102 H 98 01/06/21 09:57 98 H 99 01/06/21 09:52 94 H 98 01/06/21 09:47 92 H 99 Intake and Output 01/06/21 01/07/21 01/07/21 23:59 07:59 15:59 Intake Total 905.833 480 Output Total 600 1300 Balance 305.833 -820 Intake: IV 905.833 Lactated Ringers 1,000 ml 887.5 @ 125 mls/hr IV DIRECT [facility] Rx#:[id number] PITOCin/NS 30 UNIT/500ML 18.333 30 units In 500 ml @ 1 mls/hr IV TITR KEYONA Rx#: [id number] Intake, Free Water 480 Output: Urine 600 1300 Indwelling 400 Indwelling Catheter 200 Void 1300 Other: Total, Output Amount 200 600 # Voids Void 1 1 - Exam Breasts: Present: normal Cardiovascular: Present: Regular rate Lungs: Present: Normal air movement Abdomen: Present: normal appearance, soft Vulva: both: normal Uterus: Present: normal, firm, fundal height below umbilicus Extremities: Present: normal Comments: scant vaginal bleeding noted on joana-pad
[2021-01-07 09:51] LABS: Hematocrit 35.7 % (30.3-42.9); Hemoglobin 12.3 gm/dl (10.1-14.3)
[2021-01-07] MEDS ORDERED: PRENATAL VIT27-FE FUMARATE-FOLIC ACID VIT TAB PO SCH (10:00)
--- NOTE | 2021-01-07 16:23 | Post Anesthesia Evaluation ---
- Post Anesthesia Evaluation Patient Participated: Yes Airway Patent: Yes Stable Respiratory Function: Yes Nausea/Vomiting: No Temp > 96.8F: Yes Pain Manageable: Yes Adequeate Hydration: Yes Anesthesia Complications: No Block Receding Appropriately: Yes Patient on Ventilator: No
[2021-01-08] MEDS ORDERED: TETANUS,DIPH,PERTUSS(ACELL) VACCINE 0.5 ML SYRINGE IM ONE (06:00)
--- NOTE | 2021-01-08 08:21 | Discharge Summary ---
Providers - Providers Date of Admission: 01/06/21 21:19 Date of discharge: 01/08/21 Attending physician: HORACIO BURGER 01/06/21 23:52 Consult to Nuclear Equipment Design Engineer [CONS] Routine Reason For Exam: assistance with , SNS Primary care physician: HORACIO BURGER Hospitalization Reason for admission: active labor Delivery: Episiotomy: none Laceration: 1st degree (No repair needed. ) Other procedures: none complications: none Discharge diagnosis: IUP at term delivered [place] baby: male Hospital course: S: Pt doing well. Ambulating, voiding, and passing flatus okay. O: VSS. Fundus firm, minimal bleeding noted. H/H H/H 12.3/35.7. A: 35 y.o. s/p , now and in good condition to be discharged home . P: Discharge home with instructions. Pt to schedule visit in the office in 4 weeks. Pt to schedule son's circumcision in the office in 1 week. Condition at discharge: Good Disposition: 01 HOME / SELF CARE / HOMELESS Plan - Discharge Medications Prescriptions: Lidocain2.5%/Prilocai2.5% [Emla] 1 applic TP ONCE #1 tube Ibuprofen [Motrin] 800 mg PO Q8HR PRN #30 tablet PRN Reason: Pain, Moderate (4-6) - Provider Discharge Summary Activity: routine, no sex for 6 weeks, no heavy lifting 4 weeks, no strenuous exercise Diet: routine Instructions: routine Additional instructions: [] Smoking cessation referral if applicable(refer to patient education folder for contact #) [] Refer to [facility]'s [facility] Booklet Call your doctor immediately for: * Fever > 100.5 * Heavy vaginal bleeding ( >1 pad per hour) * Severe persistent headache * Shortness of breath * Reddened, hot, painful area to leg or breast * Drainage or odor from incision. * Keep incision clean and dry at all times and follow doctor's instructions regarding bathing/showering Congratulations on your baby boy!! Please schedule his circumcision in 1 week. Please schedule your visit in the office in 4 weeks. You have been prescribed EMLA cream for his circumcision. Please do not use this cream at home but bring it with you to your son's circumcision. Should you have any questions or concerns after discharge, please do not hesitate to call the office at [phone]. - Follow up plan Follow up: HORACIO BURGER MD [Primary Care Provider] - 6 Weeks (Follow up with [facility] within 4-6 weeks. Call office for appt.) Forms: [facility] Discharge Summary
[2021-01-08 13:47] VITALS: BP 117/63
== END 2021-01-08 18:00 | disposition home or self-care (01) | DRG 775 ==
LOC: TRG 05:54 → APU 05:56 → LD 08:29 → TRG 21:18 → LD 21:19 → OB 23:47
PROVIDERS: ADMIT Obstetrics & Gynecology; ATTEND Obstetrics & Gynecology
PROC: 10E0XZZ Delivery of Products of Conception, External Approach (ICD-10-PCS; principal; 2021-01-06)
PROC: 3E0R3BZ Introduction of Anesthetic Agent into Spinal Canal, Percutaneous Approach (ICD-10-PCS; 2021-01-06)
PROC: 00HU33Z Insertion of Infusion Device into Spinal Canal, Percutaneous Approach (ICD-10-PCS; 2021-01-06)
PROC: 3E0234Z Introduction of Serum, Toxoid and Vaccine into Muscle, Percutaneous Approach (ICD-10-PCS; 2021-01-08)
DX: O70.0 First degree perineal laceration during delivery (principal); Z3A.39 39 weeks gestation of pregnancy; Z37.0 Single live birth; Z20.822 Contact with and (suspected) exposure to COVID-19; Z23 Encounter for immunization
CPT/HCPCS: 36415; 59025; 84112; 85014; 85018; 85027; 86592; 86850; 86900; 86901; G0378; J2590; J7120; U0003